=== PATIENT | female | born 1975 | race African-American/Black ===

== ENCOUNTER 2018-03-26 07:55 | Emergency (ER) | payer MEDICAID ==
[~2018-03-26] VITALS: Ht 167.6 cm; Wt 98.9 kg
[~2018-03-26 07:55] MED LIST: ALBUPOW26
[2018-03-26 08:04] VITALS: BP 118/72
== END 2018-03-26 08:46 | disposition home or self-care (01) ==
LOC: ER 07:55
DX: L25.8 Unspecified contact dermatitis due to other agents (principal); T36.0X5A Adverse effect of penicillins, initial encounter; J45.909 Unspecified asthma, uncomplicated; Y92.9 Unspecified place or not applicable

== ENCOUNTER 2018-07-01 16:38 | Emergency (ER) | payer MEDICAID ==
[~2018-07-01] VITALS: Ht 170.2 cm; Wt 98.0 kg
[2018-07-01 16:48] VITALS: BP 140/69
[2018-07-01] MEDS ORDERED: EPINEPHrine HCL 1 MG/1 ML AMP SC ONE (17:15)
[2018-07-01] MEDS ORDERED: methylPREDNISolone SOD SUCC 125 MG/2 ML VL IM ONE (17:15)
== END 2018-07-01 18:08 | disposition home or self-care (01) ==
LOC: ER 16:43
DX: T78.1XXA Other adverse food reactions, not elsewhere classified, initial encounter (principal); J45.909 Unspecified asthma, uncomplicated; X58.XXXA Exposure to other specified factors, initial encounter
CPT/HCPCS: 96372; 99284; J0171; J2930

== ENCOUNTER 2018-08-09 06:36 | Emergency (ER) | payer MEDICAID ==
[~2018-08-09] VITALS: Ht 170.2 cm; Wt 102.1 kg
[2018-08-09 06:54] VITALS: BP 144/86
[2018-08-09] MEDS ORDERED: methylPREDNISolone SOD SUCC 125 MG/2 ML VL IM ONE (07:30)
[2018-08-09] MEDS ORDERED: diphenhdrAMINE HCL 25 MG CAP PO ONE (07:30)
== END 2018-08-09 08:08 | disposition home or self-care (01) ==
LOC: ER 06:37
DX: T78.40XA Allergy, unspecified, initial encounter (principal); J45.909 Unspecified asthma, uncomplicated; Z90.89 Acquired absence of other organs
CPT/HCPCS: 96372; 99283; J2930

== ENCOUNTER 2018-09-18 08:55 | Emergency (ER) | payer MEDICAID ==
[~2018-09-18] VITALS: Ht 170.2 cm; Wt 103.4 kg
[2018-09-18] MEDS ORDERED: SODIUM CHLORIDE 0.9% 1,000 ML IV ONE (11:11)
[2018-09-18] MEDS ORDERED: diphenhdrAMINE HCL 50 MG/1 ML VL IV ONE (11:15)
[2018-09-18] MEDS ORDERED: methylPREDNISolone SOD SUCC 125 MG/2 ML VL IV ONE (11:15)
[2018-09-18 11:53] VITALS: BP 136/76
== END 2018-09-18 13:26 | disposition home or self-care (01) ==
LOC: ER 08:56
DX: L50.0 Allergic urticaria (principal); Z88.0 Allergy status to penicillin; J45.909 Unspecified asthma, uncomplicated
CPT/HCPCS: 94761; 96374; 96375; 99284; J2930